=== PATIENT | male | born 1935 | race Caucasian/White ===

== ENCOUNTER → 2020-06-05 | Outpatient (CLI) | payer BC ==
--- NOTE | 2020-06-05 18:06 | KCIC ---
PA and lateral chest radiographs 06/05/2020 CLINICAL HISTORY: Amiodarone. COPD. Two PA and a lateral digital radiographs of the chest were obtained. No previous studies are availabl e for comparison. 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 Leads extend to the right atrium and right ventricl e of heart. The cardiac silhouette is mildly enlarged. Atherosclerotic calcification of the thoracic aorta is seen. The thoracic aorta is mildly tortuous. Emphysematous changes are seen involving both l ungs. No acute pulmonary infiltrate is seen. No pneumothorax or pleural effusion is noted. Degenerati ve changes are seen involving the thoracic spine. IMPRESSION: No acute abnormality is seen. Electronically signed by: Nick Jorge MD (06/05/2020 6:04 PM) [id number]
== END ==
LOC: KCIC 14:17
PROVIDERS: ATTEND Internal Medicine Cardiovascular Disease
DX: I70.0 Atherosclerosis of aorta (principal); I51.7 Cardiomegaly; Q25.46 Tortuous aortic arch; J43.9 Emphysema, unspecified; I48.0 Paroxysmal atrial fibrillation; M47.814 Spondylosis without myelopathy or radiculopathy, thoracic region; Z95.0 Presence of cardiac pacemaker
CPT/HCPCS: 71046

== ENCOUNTER → 2021-04-30 | Outpatient (CLI) | payer BC ==
[~2021-04-30] MED LIST: CONTRAST GIVEN. MC PRN; IOHEXOL 300 MG/ML 100ML VIAL. IV ONE
--- NOTE | 2021-04-30 09:01 | RAD ---
CT HEAD WITHOUT AND WITH IV CONTRAST Date: 04/30/2021 8:34 AM Clinical Indication: SYNCOPE Comparison: None. Technique: 5 mm axial tomographic images were obtained of the head with and without contrast. 75 cc Omnipaque 300 contrast was administered intravenously during the exam. These were viewed on brain an d bone windows. One or more of the following dose reduction techniques were utilized: Automated expos ure control (AEC), Adjustment of mA and/or kV according to patient size, Use of iterative reconstruct ion technique such as ASiR, CT scan done according to ALARA and image gently/image wisely Findings: Mild nonspecific periventricular hypoattenuation is most consistent with chronic small vessel ischemi c disease. Mild generalized cerebral volume. No intra- or extra-axial mass or fluid collection. No ac yudith hemorrhage. The ventricles are normal in size, shape, and morphology. The brown-white matter junct ion is normal. The subarachnoid cisterns are patent. Tiny area of right frontal encephalomalacia. No abnormal enhancement. The visualized paranasal sinuses are normal. The visualized portions of the orbits and globes are no rmal. The mastoid air cells are clear. The order desk caller topogram shows no lytic lesion or fracture. Impression: 1. No acute intracranial process. 2. Tiny area of right frontal encephalomalacia. 3. Mild chronic small vessel ischemic disease and mild cerebral volume loss. Electronically signed by: Cj Duval MD (04/30/2021 8:58 AM) [id number]
== END ==
LOC: CT 08:02
PROVIDERS: ATTEND Family Medicine
DX: I67.82 Cerebral ischemia (principal); G93.89 Other specified disorders of brain; R55 Syncope and collapse; R42 Dizziness and giddiness
CPT/HCPCS: 70470; Q9967